=== PATIENT | female | born 1980 | race Caucasian/White ===

== ENCOUNTER 2022-04-01 07:13 | Observation (INO) ==
[2022-04-01] MEDS ORDERED: Iopamidol - 370 500 ML MLS IVP ONE (07:26)
[2022-04-01] MEDS ORDERED: Ondansetron 4 MG/2 ML VIAL IVP ONE (07:30)
[2022-04-01] MEDS ORDERED: Morphine Sulfate 2 MG/ML SYRINGE IVP ONE (07:31)
[2022-04-01 08:04] LABS: Basophils # 0.1 K/mcL (0.0-0.2); Basophils % 0.5 %; Eosinophils # 0.3 K/mcL (0.0-0.6); Eosinophils % 1.6 %; Hematocrit 40.6 % (35.3-44.9); Hemoglobin 13.7 g/dL (11.5-15.4); Immature Granulocytes % 0.3 % (0-4); Lymphocytes # 2.6 K/mcL (0.6-4.6); Mean Corpuscular HGB Conc 33.7 g/dL (31.6-35.5); Mean Corpuscular Hemoglobin 30.6 pg (28.0-33.3); Mean Corpuscular Volume 90.8 fL (83.0-100.0); Mean Platelet Volume 10.9 fL (9.4-12.4); Monocytes # 0.8 K/mcL (0.0-1.3); Monocytes % 4.9 %; Neutrophils # 13.3 K/mcL (1.6-8.9); Platelet Count 327 K/mcL (140-400); Red Blood Count 4.47 M/mcL (3.82-4.97); Red Cell Distribution Width 13.9 % (11.5-14.5); Segmented Neutrophils % 77.7 %; White Blood Count 17.1 K/mcL (4.3-11.1)
[2022-04-01 08:12] LABS: Alanine Aminotransferase 5 Units/L (7-52); Albumin 3.9 g/dL (3.5-5.7); Albumin/Globulin Ratio 1.6 (1.1-2.2); Alkaline Phosphatase 64 Units/L (34-104); Aspartate Amino Transferase 10 Units/L (13-39); BUN/Creatinine Ratio 10 (6-26); Bilirubin,Indirect 0.4 mg/dL (0.0-1.0); Bilirubin,Total 0.4 mg/dL (0.3-1.0); Blood Urea Nitrogen 6 mg/dL (6-20); Calcium 8.5 mg/dL (8.6-10.3); Carbon Dioxide 22 mEq/L (23-29); Chloride 105 mEq/L (98-107); Globulin 2.5 g/dL (2.4-3.5); Glucose 111 mg/dL (70-105); Lipase 9 Units/L (11-82); Osmolality,Calculated 278 (280-300); Potassium 3.8 mEq/L (3.5-5.1); Sodium 135 mEq/L (136-145); Total Protein 6.4 g/dL (6.4-8.9)
[2022-04-01 08:35] LABS: INR 1.1; Prothrombin Time 11.7 Seconds (9.4-12.1)
[2022-04-01] MEDS ORDERED: cefOXitin 2,000 MG in 0.9 % Sodium Chloride 20 ML IVP ONE (09:16)
[2022-04-01] MEDS ORDERED: Ketorolac 30 MG/ML VIAL IVP PRN ×2 (11:44→15:47)
[2022-04-01] MEDS ORDERED: *HR* OxyCODONE/APAP 5/325 TABLET PO PRN ×2 (11:44→15:47)
[2022-04-01] MEDS ORDERED: *HR* Promethazine 25 MG/ML VIAL IM PRN ×2 (11:44→15:47)
[2022-04-01] MEDS ORDERED: *HR* Rocuronium Bromide 50 MG/5 ML VIAL ONE (11:50)
[2022-04-01] MEDS ORDERED: Lidocaine -MPF 2% 2 ML VIAL ONE (11:50)
[2022-04-01] MEDS ORDERED: Ondansetron 4 MG/2 ML VIAL ONE (11:50)
[2022-04-01] MEDS ORDERED: Lidocaine HCL 4 ML Topical Solution (Laryng-O-Jet Kit Sterile Pak) TP ONE (11:50)
[2022-04-01] MEDS ORDERED: *HR* Propofol 200 MG/20 ML VIAL IVP ONE (11:51)
[2022-04-01] MEDS ORDERED: *HR* Midazolam HCl 2 MG/2 ML VIAL ONE (11:52)
[2022-04-01] MEDS ORDERED: *HR* FentaNYL (PF) 100 MCG/2 ML VIAL ONE (11:52)
[2022-04-01 12:07] LABS: Bilirubin,Urine Negative (Negative); Blood,Urine Moderate (Negative); Clarity,Urine Clear (Clear); Color,Urine Colorless (Yellow); Glucose,Urine (UA) Normal (Normal); Ketones,Urine Negative (Negative); Leukocyte Esterase,Urine Negative (Negative); Nitrite,Urine Negative (Negative); PH,Urine 7.5 pH Units (5.0-8.0); Protein,Urine Trace mg/dL (Neg-Trace); Specific Gravity,Urine > 1.030 (1.010-1.025); Squamous Epithelial Cell,Urine Few per hpf (None-Few); Urobilinogen,Urine Normal (Normal)
[2022-04-01] MEDS ORDERED: Bupivacaine 0.5%-Epi 1:200,000 50 ML VIAL ONE (13:17)
[2022-04-01] MEDS ORDERED: Ondansetron 4 MG/2 ML VIAL IVP PRN ×2 (13:59→15:47)
[2022-04-01] MEDS ORDERED: *HR* HYDROmorphone PF 0.5 MG/0.5 ML SYRINGE IVP PRN ×2 (13:59→15:47)
[2022-04-01] MEDS ORDERED: Albuterol 2.5 MG/3 ML NEBULIZER IH PRN ×2 (13:59→15:47)
[2022-04-01] MEDS ORDERED: Sugammadex Sodium 200 MG/2 ML VIAL IV ONE (14:08)
[2022-04-01] MEDS ORDERED: *HR* HYDROMORPHONE 2 MG/ML VIAL ONE (14:21)
[2022-04-01] MEDS ORDERED: Ketorolac 30 MG/ML VIAL ONE (14:30)
[2022-04-01] MEDS: cefOXitin 2,000 MG in 0.9 % Sodium Chloride 20 ML IVP SCH (17:34)
[2022-04-01] MEDS: Nicotine 21 MG PATCH.TD24 TD SCH (17:37)
[2022-04-01] MEDS ORDERED: cefOXitin 2,000 MG in 0.9 % Sodium Chloride 20 ML IVP SCH (18:00)
[2022-04-02 01:34] LABS: Basophils % 0.1 %; Eosinophils % 0.1 %; Hematocrit 39.2 % (35.3-44.9); Hemoglobin 12.8 g/dL (11.5-15.4); Immature Granulocytes % 0.6 % (0-4); Lymphocytes # 1.2 K/mcL (0.6-4.6); Lymphocytes % 6.1 %; Mean Corpuscular HGB Conc 32.7 g/dL (31.6-35.5); Mean Corpuscular Hemoglobin 30.1 pg (28.0-33.3); Mean Corpuscular Volume 92.2 fL (83.0-100.0); Mean Platelet Volume 10.8 fL (9.4-12.4); Monocytes # 0.7 K/mcL (0.0-1.3); Monocytes % 3.3 %; Neutrophils # 17.9 K/mcL (1.6-8.9); Platelet Count 338 K/mcL (140-400); Red Blood Count 4.25 M/mcL (3.82-4.97); Red Cell Distribution Width 13.6 % (11.5-14.5); Segmented Neutrophils % 89.8 %; White Blood Count 19.9 K/mcL (4.3-11.1)
[2022-04-02] MEDS: cefOXitin 2,000 MG in 0.9 % Sodium Chloride 20 ML IVP SCH ×3 (01:40→17:22)
[2022-04-02 01:57] LABS: BUN/Creatinine Ratio 11 (6-26); Blood Urea Nitrogen 7 mg/dL (6-20); Calcium 8.7 mg/dL (8.6-10.3); Carbon Dioxide 22 mEq/L (23-29); Chloride 106 mEq/L (98-107); Glucose 134 mg/dL (70-105); Osmolality,Calculated 282 (280-300); Potassium 4.1 mEq/L (3.5-5.1); Sodium 136 mEq/L (136-145)
[2022-04-02] MEDS: Nicotine 21 MG PATCH.TD24 TD SCH (09:22)
[2022-04-03] MEDS: cefOXitin 2,000 MG in 0.9 % Sodium Chloride 20 ML IVP SCH (02:07)
[2022-04-03 02:38] LABS: Hematocrit 34.6 % (35.3-44.9); Hemoglobin 11.4 g/dL (11.5-15.4); Mean Corpuscular HGB Conc 32.9 g/dL (31.6-35.5); Mean Corpuscular Hemoglobin 30.4 pg (28.0-33.3); Mean Corpuscular Volume 92.3 fL (83.0-100.0); Mean Platelet Volume 10.8 fL (9.4-12.4); Platelet Count 299 K/mcL (140-400); Red Blood Count 3.75 M/mcL (3.82-4.97); Red Cell Distribution Width 14.3 % (11.5-14.5); White Blood Count 11.4 K/mcL (4.3-11.1)
[2022-04-03 08:00] VITALS: BP 109/67; PULSE 75; TEMP 98; O2SAT 96
== END 2022-04-03 09:29 | disposition home or self-care (01) ==
LOC: 3ANU 07:13 → EMEROOARM 07:13 → 3ANU 11:00
PROVIDERS: ADMIT Surgery; ATTEND Surgery